=== PATIENT | female | born 1975 | race Caucasian/White ===

== ENCOUNTER 2016-07-19 15:46 | Emergency (ER) | payer BC, MEDICAID ==
[2016-07-19 18:07] LABS: Hematocrit 41 % (35-47); Hemoglobin 13.3 g/dl (12.0-16.0); Mean Corpuscular HGB Conc 33 g/dl (31-36); Mean Corpuscular Hemoglobin 31 pg (27-31); Mean Corpuscular Volume 95 fL (80-97); Mean Platelet Volume 9 um3 (7.4-10.4); Red Blood Count 4.26 10^6/ul (4.0-5.4); Red Cell Distribution Width 14 % (10.5-15); White Blood Count 5.6 10^3/ul (3.5-10.8)
[2016-07-19 18:23] LABS: ALT 12 U/L (7-52); AST 13 U/L (13-39); Albumin 3.5 g/dL (3.2-5.2); Alkaline Phosphatase 69 U/L (34-104); Anion Gap 4 mmol/L (2-11); BUN/Creatinine Ratio 12.7 (8-20); Blood Urea Nitrogen 10 mg/dL (6-24); C Reactive Protein 1.17 mg/L (< 5.00); CO2 Carbon Dioxide 26 mmol/L (22-32); Calcium 8.4 mg/dL (8.6-10.3); Chloride 109 mmol/L (101-111); EGFR African American 103.1 (>60); EGFR Non-African American 80.2 (>60); Globulin 2.7 g/dL (2-4); Glucose 110 mg/dL (70-100); Lipase 20 U/L (11.0-82.0); Sodium 139 mmol/L (133-145); Total Protein 6.2 g/dL (6.4-8.9)
[2016-07-19] MEDS ORDERED: Iohexol 300* (CONTRAST) 10 ML SDV IV ONE (20:56)
--- NOTE | 2016-07-19 21:21 | ED ---
Darell Lopez Billy, scribed for Yoni Mazariegos MD on 07/19/16 at 1837 . Abdominal Pain/Female - HPI Summary HPI Summary: Patient is a 41 year-old female coming to [facility] presenting with blood in the stool for the last 3 days; her last BM was yesterday, bloody. She also reports diffuse abdominal tenderness radiating to the back; when asked she has difficulty pinpointing location. She also reports fatigue, nausea, fever. She also reports a stiff neck that "feels like whiplash." PSHx of gastric bypass. She has had a recent course of antibiotics in the last 3 months. 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 - History of Current Complaint Chief Complaint: EDAbdPain Stated Complaint: ABD PAIN/FEVER/HEADACHE Time Seen by Provider: 07/19/16 17:32 Hx Obtained From: Patient Onset/Duration: Gradual Onset, Lasting Days, Still Present Timing: Constant Severity Initially: Moderate Severity Currently: Moderate Pain Intensity: 4 Pain Scale Used: 0-10 Numeric Location: Diffuse Radiates: Yes Radiates to: Back Aggravating Factor(s): Nothing Alleviating Factor(s): Nothing Associated Signs and Symptoms: Positive: Blood in Stool, Nausea, Other: - fatigue; neck stiffness Allergies/Adverse Reactions: Allergies Allergy/AdvReac Type Severity Reaction Status Date / Time Hydromorphone AdvReac Severe Headache Verified 07/19/16 15:55 [From Hydromorph Contin] PMH/Surg Hx/FS Hx/Imm Hx Endocrine/Hematology History: Denies: Hx Diabetes Cardiovascular History: Reports: Hx Hypercholesterolemia - Prior to gastric bypass, resolved, Hx Hypertension - No longer treated for, Other Cardiovascular Problems/Disorders - Prior to gastric bypass, resolved History: Denies: Hx Renal Disease - Surgical History Surgery Procedure, Year, and Place: Gastric bypass 2004, L knee [place] [facility] [place] [facility] [place] chole[place] [facility] [place] 2004 and 2008 laparoscopic surgeries for blockages, 2006 [facility] [place] tubal ligation. Infectious Disease History: Yes Infectious Disease History: Denies: Traveled Outside the [place] in Last 30 Days - Family History Known Family History: Positive: Unknown - Patient is adopted - Social History Alcohol Use: None Substance Use Type: Reports: None Smoking Status (MU): Former Smoker Review of Systems Positive: Fever, Fatigue Positive: Abdominal Pain, Nausea, Other - blood in stool Positive: Other - neck stiffness All Other Systems Reviewed And Are Negative: Yes Physical Exam Triage Information Reviewed: Yes Vital Signs On Initial Exam: Initial Vitals Temp Pulse Resp BP Pulse Ox 98.9 F 72 16 128/68 100 07/19/16 15:55 07/19/16 15:55 07/19/16 15:55 07/19/16 15:55 07/19/16 15:55 Vital Signs Reviewed: Yes Appearance: Positive: Well-Appearing, No Pain Distress Skin: Positive: Warm, Skin Color Reflects Adequate Perfusion, Dry Eyes: Positive: CHACHA ENT: Positive: Other - MMM Neck: Positive: Supple, Nontender Respiratory/Lung Sounds: Positive: Clear to Auscultation, Breath Sounds Present. Negative: Rales, Wheezes Cardiovascular: Positive: RRR, Other - No gallops., S1, S2. Negative: Rub, Tachycardia Abdomen Description: Positive: Soft, Other: - LUQ tenderness with grimacing without guarding or rebound.. Negative: CVA Tenderness (R), CVA Tenderness (L) , Distended Bowel Sounds: Positive: Present Musculoskeletal: Positive: Other - Calves are soft and nontender.. Negative: Edema Left, Edema Right Neurological: Positive: Alert, Oriented to Person Place, Time Psychiatric: Positive: Affect/Mood Appropriate AVPU Assessment: Alert Diagnostics - Vital Signs Vital Signs Temp Pulse Resp BP Pulse Ox 07/19/16 16:57 99.5 F 76 16 129/61 100 07/19/16 15:55 98.9 F 72 16 128/68 100 - Laboratory Lab Results: Lab Results 07/19/16 07/19/16 07/19/16 Range/Units 18:00 18:00 18:00 WBC 5.6 (3.5-10.8) 10^3/ul RBC 4.26 (4.0-5.4) 10^6/ul Hgb 13.3 (12.0-16.0) g/dl Hct 41 (35-47) % MCV 95 (80-97) fL MCH 31 (27-31) pg MCHC 33 (31-36) g/dl RDW 14 (10.5-15) % Plt Count 269 (150-450) 10^3/ul MPV 9 (7.4-10.4) um3 Neut % (Auto) 55.4 (38-83) % Lymph % (Auto) 35.4 (25-47) % [place] % (Auto) 6.4 (1-9) % Eos % (Auto) 2.1 (0-6) % Baso % (Auto) 0.7 (0-2) % Absolute Neuts (auto) 3.1 (1.5-7.7) 10^3/ul Absolute Lymphs (auto) 2.0 (1.0-4.8) 10^3/ul Absolute Monos (auto) 0.4 (0-0.8) 10^3/ul Absolute Eos (auto) 0.1 (0-0.6) 10^3/ul Absolute Basos (auto) 0 (0-0.2) 10^3/ul Absolute Nucleated RBC 0 10^3/ul Nucleated RBC % 0 Sodium 139 (133-145) mmol/L Potassium 4.0 (3.5-5.0) mmol/L Chloride 109 (101-111) mmol/L Carbon Dioxide 26 (22-32) mmol/L Anion Gap 4 (2-11) mmol/L BUN 10 (6-24) mg/dL Creatinine 0.79 (0.51-0.95) mg/dL Est GFR ( Amer) 103.1 (>60) Est GFR (Non-Af Amer) 80.2 (>60) BUN/Creatinine Ratio 12.7 (8-20) Glucose 110 H (70-100) mg/dL Lactic Acid 1.3 (0.5-2.0) mmol/L Calcium 8.4 L (8.6-10.3) mg/dL Total Bilirubin 0.20 (0.2-1.0) mg/dL AST 13 (13-39) U/L ALT 12 (7-52) U/L Alkaline Phosphatase 69 (34-104) U/L C-Reactive Protein 1.17 (< 5.00) mg/L Total Protein 6.2 L (6.4-8.9) g/dL Albumin 3.5 (3.2-5.2) g/dL Globulin 2.7 (2-4) g/dL Albumin/Globulin Ratio 1.3 (1-3) Lipase 20 (11.0-82.0) U/L Beta HCG, Quant < 0.60 mIU/mL Result Diagrams: 07/19/16 18:00 07/19/16 18:00 Lab Statement: Any lab studies that have been ordered have been reviewed, and results considered in the medical decision making process. Re-Evaluation - Re-Evaluation First Eval Re-Evaluation Time: 21:16 Comment: She is still non-tender, feeling quite well, and awaiting CT abd/pel. Abdominal Pain Fem Course/Dx - Course Course Of Treatment: Gastric bypass patient coming in with diarrhea, left-sided abdominal pain, and blood in the stool, as well as fever. CT abd/pel pending, signed out to Dr. Shaw. At this point, her abdomen is behind, non-surgical, but we will consult surgery based on CT results. Labwork WNL at this time. - Diagnoses Provider Diagnoses: Colitis Discharge - Discharge Plan Condition: Stable Disposition: OTHER Discharge Disposition Comment: Signed out to Dr. Shaw pending CT abd/pel. Referrals: Artem Davey MD [Primary Care Provider] - The documentation as recorded by the Darell parry Billy accurately reflects the service I personally performed and the decisions made by me, Yoni Mazariegos MD.
--- NOTE | 2016-07-19 22:28 | RAD ---
Indication: Left lower quadrant pain, diarrhea and bloody stools. CT of the abdomen and pelvis was performed after oral and IV contrast administration. Administered 115.0 ml of OMNIPAQUE 300 mgi/ml was given according to hospital protocol. Coronal and sagittal reconstructed images were obtained. The lung bases demonstrate no pleural fluid, nodules or masses. Heart is of normal size without evidence of pericardial effusion. Liver is normal in size. No focal lesions or intrahepatic ductal dilatation is noted. The gallbladder has been surgically resected. No adrenal lesions are noted. The right kidney is enlarged with no hydronephrosis. The left kidney is not present. There is suggestion of a small hypodensity in the left renal fossa which may represent a atrophic kidney. No retroperitoneal lymphadenopathy is noted. Patient status post gastric bypass surgery. No dilated loops of bowel are noted. There is some mucosal thickening of the sigmoid colon which is nonspecific. A small amount of free fluid is noted in the pelvis. The uterus demonstrates myomatous changes. No pelvic adenopathy is identified. The appendix is visualized and is normal. IMPRESSION: NONSPECIFIC MUCOSAL THICKENING OF THE RECTUM AND SIGMOID COLON WITH 30 FAT IN THE PELVIS. MYOMATOUS CHANGES ARE NOTED IN THE UTERUS. PATIENT STATUS POST CHOLECYSTECTOMY. PATIENT STATUS POST GASTRIC BYPASS SURGERY. 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 THERE MAY BE A REMNANT OF THE LEFT KIDNEY NOTED WHICH IS A HYPODENSITY.
[2016-07-20 01:24] VITALS: BP 110/66
--- NOTE | 2016-09-26 23:15 | ED ---
Tata Lopez Janilya, scribed for Marquis Shaw MD on 07/20/16 at 0040 . Re-Evaluation - Re-Evaluation First Eval Re-Evaluation Time: 21:16 Comment: She is still non-tender, feeling quite well, and awaiting CT abd/pel. Course/Dx - Diagnoses Provider Diagnoses: Abdominal pain Diagnostics - Vital Signs Vital Signs Temp Pulse Resp BP Pulse Ox 07/19/16 23:21 98.6 F 72 16 127/66 99 07/19/16 20:27 62 16 112/79 100 07/19/16 16:57 99.5 F 76 16 129/61 100 07/19/16 15:55 98.9 F 72 16 128/68 100 - Laboratory Lab Results: Lab Results 07/19/16 07/19/16 07/19/16 Range/Units 18:00 18:00 18:00 WBC 5.6 (3.5-10.8) 10^3/ul RBC 4.26 (4.0-5.4) 10^6/ul Hgb 13.3 (12.0-16.0) g/dl Hct 41 (35-47) % MCV 95 (80-97) fL MCH 31 (27-31) pg MCHC 33 (31-36) g/dl RDW 14 (10.5-15) % Plt Count 269 (150-450) 10^3/ul MPV 9 (7.4-10.4) um3 Neut % (Auto) 55.4 (38-83) % Lymph % (Auto) 35.4 (25-47) % [place] % (Auto) 6.4 (1-9) % Eos % (Auto) 2.1 (0-6) % Baso % (Auto) 0.7 (0-2) % Absolute Neuts (auto) 3.1 (1.5-7.7) 10^3/ul Absolute Lymphs (auto) 2.0 (1.0-4.8) 10^3/ul Absolute Monos (auto) 0.4 (0-0.8) 10^3/ul Absolute Eos (auto) 0.1 (0-0.6) 10^3/ul Absolute Basos (auto) 0 (0-0.2) 10^3/ul Absolute Nucleated RBC 0 10^3/ul Nucleated RBC % 0 Sodium 139 (133-145) mmol/L Potassium 4.0 (3.5-5.0) mmol/L Chloride 109 (101-111) mmol/L Carbon Dioxide 26 (22-32) mmol/L Anion Gap 4 (2-11) mmol/L BUN 10 (6-24) mg/dL Creatinine 0.79 (0.51-0.95) mg/dL Est GFR ( Amer) 103.1 (>60) Est GFR (Non-Af Amer) 80.2 (>60) BUN/Creatinine Ratio 12.7 (8-20) Glucose 110 H (70-100) mg/dL Lactic Acid 1.3 (0.5-2.0) mmol/L Calcium 8.4 L (8.6-10.3) mg/dL Total Bilirubin 0.20 (0.2-1.0) mg/dL AST 13 (13-39) U/L ALT 12 (7-52) U/L Alkaline Phosphatase 69 (34-104) U/L C-Reactive Protein 1.17 (< 5.00) mg/L Total Protein 6.2 L (6.4-8.9) g/dL Albumin 3.5 (3.2-5.2) g/dL Globulin 2.7 (2-4) g/dL Albumin/Globulin Ratio 1.3 (1-3) Lipase 20 (11.0-82.0) U/L Beta HCG, Quant < 0.60 mIU/mL Result Diagrams: 07/19/16 18:00 07/19/16 18:00 Lab Statement: Any lab studies that have been ordered have been reviewed, and results considered in the medical decision making process. - CT abd/pel CT Interpretation: Positive (See Comments) - IMPRESSION: NONSPECIFIC MUCOSAL THICKENING OF THE RECTUM AND SIGMOID COLON WITH 30 FAT IN THE PELVIS. MYOMATOUS CHANGES ARE NOTED IN THE UTERUS. PATIENT STATUS POST CHOLECYSTECTOMY. PATIENT STATUS POST GASTRIC BYPASS SURGERY. 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 THERE MAY BE A REMNANT OF THE LEFT KIDNEY NOTED WHICH IS A HYPODENSITY. CT Interpretation Completed By: Radiologist Discharge - Discharge Plan Condition: Stable Disposition: HOME Patient Education Materials: Abdominal Pain (ED) Referrals: Artem Davey MD [Primary Care Provider] - Additional Instructions: Follow up with your primary care provider. The documentation as recorded by the Tata parry Janilya accurately reflects the service I personally performed and the decisions made by me, Marquis Shaw MD.
== END 2016-07-20 01:25 | disposition home or self-care (01) ==
LOC: ED 15:46
DX: K52.9 Noninfective gastroenteritis and colitis, unspecified (principal); R10.9 Unspecified abdominal pain; R50.9 Fever, unspecified; R51 Headache; Z87.891 Personal history of nicotine dependence; R53.83 Other fatigue
CPT/HCPCS: 36415; 74177; 80053; 83605; 83690; 84702; 85025; 86140; 99283; Q9967

== ENCOUNTER 2017-12-23 08:40 | Emergency (ER) | payer BC ==
[2017-12-23 08:58] VITALS: BP 101/64
--- NOTE | 2017-12-23 09:51 | UC ---
Melita Lopez Julia, scribed for Joya Keene MD on 12/23/17 at 0942 . Skin Complaint HPI - HPI Summary HPI Summary: A 42 year old F presents to [facility] with a chief complaint of multiple red pruritic rashes to face thigh, and arms since last night after taking Diflucan yesterday. She states that she has had similar symptoms before after taking Diflucan. Took Benadryl last evening - helped itchng., Denies fever, difficulty breathing, and tongue or mouth swelling. Patient denies any other new exposures. Patient states the rash is [place] which she had last time she took Diflucan. Patient has been putting hydrocortisone cream on some of the lesions with improvement of itching. Medication and allergies reviewed. PMHx depression and migraines. Denies history of bipolar disorder and schizophrenia. - History of Current Complaint Chief Complaint: UCSkin Time Seen by Provider: 12/23/17 09:31 Stated Complaint: RASH Hx Obtained From: Patient Hx Last Menstrual Period: had uterine ablasion - doesn't get periods Onset/Duration: Lasting Hours Timing: Constant Pain Intensity: 0 Location: Diffuse Character: Pruritus, Redness Aggravating Factor(s): Other - diflucan Alleviating Factor(s): Nothing Associated Signs & Symptoms: Negative: Difficulty Breathing, Fever Related History: Recent change in medication - Allergy/Home Medications Allergies/Adverse Reactions: Allergies Allergy/AdvReac Type Severity Reaction Status Date / Time fluconazole [From Diflucan] Allergy Severe Rash Verified 12/23/17 09:48 hydromorphone AdvReac Headache Verified 12/23/17 08:58 Home Medications: Home Medications Butalbit/Acetamin/Caff/Codeine [Drgsin-Fbjp-Niiwgysavwa-Codein] 1 each PO DAILY PRN 12/23/17 [History Confirmed 12/23/17] Fluconazole 100 MG TAB* [Diflucan 100 MG TAB*] 100 mg PO ONCE PRN 12/23/17 [ History Confirmed 12/23/17] Folic Acid TAB* [Folvite TAB*] 1 mg PO DAILY 12/23/17 [History Confirmed ] Magnesium [Magnesium Elemental] 1 dose PO DAILY 12/23/17 [History Confirmed 10/07] Naproxen [Naproxen 500 mg tab] 500 mg PO DAILY PRN 12/23/17 [History Confirmed 12/23/17] Nitrofurantoin Macrocrystal [Nitrofurantoin] 100 mg PO 12/23/17 [History] Topiramate TAB(*) [Topamax 100 mg tab] 100 mg PO DAILY 12/23/17 [History Confirmed 12/23/17] Review of Systems Constitutional: Negative Skin: Rash ENT: Negative - mouth swelling Respiratory: Negative - difficulty breathing All Other Systems Reviewed And Are Negative: Yes PMH/Surg Hx/FS Hx/Imm Hx Previously Healthy: Yes Neurological History: Migraine Psychological History: Depression - Surgical History Surgical History: Yes Surgery Procedure, Year, and Place: Gastric bypass 2004, L knee surgery 1988 [facility] [place] , 1996 [facility] [place], cholecystectomy 1999 [facility] [place], 2004 and 2008 laparoscopic surgeries for blockages, 2006 [facility] [place] + tubal ligation. uterine ablasion - Family History Known Family History: Positive: Unknown - Patient is adopted - Social History Occupation: Employed Full-time Lives: - Patient is adopted Alcohol Use: Occasionally Substance Use Type: None Smoking Status (MU): Current Some Day Smoker Physical Exam - Summary Physical Exam Summary: Vital Signs Reviewed: Yes A+Ox3, no distress Eyes: Conjunctiva Clear ENT: Hearing grossly normal neck: supple Respiratory: Positive: No respiratory distress, No accessory muscle use Cardiovascular: skin color reflect adequate perfusion Musculoskeletal Exam: MAYS x 4 without difficulty Neurological: Positive: Alert, ambulatory without difficulty Psychological: Positive: Normal Response To Family Skin: Positive: no ecchymosis, patient with blotchy hive-like urticarial lesions to legs, arms, face and upper chest. Triage Information Reviewed: Yes Vital Signs: Initial Vital Signs Temp 98.6 F 12/23/17 08:52 Pulse 78 12/23/17 08:52 Resp 14 12/23/17 08:52 BP 101/64 12/23/17 08:52 Pulse Ox 99 12/23/17 08:52 Course/Dx - Course Course Of Treatment: Patient presents with hive-like lesions to arms legs chest. Patient states developed last night after taking Diflucan. Patient with similar reaction once previously. Patient denies any airway or mouth symptoms. Patient took Benadryl last night with improvement. Patient has not taken anything today. Patient has applied hydrocortisone cream with mild improvement. We'll start patient on a prednisone taper. Recommendations this Diflucan as an allergy. Patient agreement so Zkatter updated. Discussed with patient that avoiding heat, and using cool packs. Patient comfortable in agreement with plan. - Diagnoses Provider Diagnoses: urticaria Discharge - Sign-Out/Discharge Documenting (check all that apply): Discharge/Admit/Transfer - Discharge Plan Condition: Stable Disposition: HOME Prescriptions: predniSONE TAB* [Deltasone 20 MG TAB*] 20 mg PO DAILY #13 tab Patient Education Materials: Urticaria (ED), Adverse Drug Reaction (ED) Referrals: Artem Davey MD [Primary Care Provider] - Additional Instructions: - Take prednisone exactly as prescribed until gone - starting today - Okay to take Benadryl (1-2 tablets) every 6 hours as needed. This medication may cause drowsiness - do NOT drive, operate machinery or drink alcohol while taking Benadryl -Take pepcid as prescribed - 2 times daily for 7 days -Avoid getting over heated (hot showers, hot tubs, exercise) for at least 48 hours - Try to avoid aspirin, NSAIDs (Motrin, Aleve, Naprosyn) for 2-3 days - Okay to apply cool compresses to the area of injury -Contact your doctor or return here with questions or concerns - Billing Disposition and Condition Condition: STABLE Disposition: Home The documentation as recorded by the Melita parry Julia accurately reflects the service I personally performed and the decisions made by , Joya Keene MD.
== END 2017-12-23 09:56 | disposition home or self-care (01) ==
LOC: UCEAST 08:40
DX: L50.9 Urticaria, unspecified (principal); F32.9 Major depressive disorder, single episode, unspecified; G43.909 Migraine, unspecified, not intractable, without status migrainosus; F17.200 Nicotine dependence, unspecified, uncomplicated; Z88.5 Allergy status to narcotic agent; Z88.1 Allergy status to other antibiotic agents
CPT/HCPCS: 99212; G0463

== ENCOUNTER 2021-12-05 11:42 | Observation (INO) ==
[2021-12-05] MEDS ORDERED: Ondansetron 4 mg VIAL 2 MG/ML 2 ml VIAL IV ONE (13:16)
[2021-12-05] MEDS ORDERED: Morphine 4 MG/ML VIAL (1 ml) IV ONE (13:16)
[2021-12-05 13:51] LABS: ABS Eosinophils 0.1 10^3/ul (0-0.6); ABS Lymphocytes 1.4 10^3/ul (1.0-4.8); ABS Monocytes 0.3 10^3/ul (0-0.8); Eosinophil % 2.5 %; Hematocrit 45 % (35-47); Hemoglobin 14.6 g/dL (12.0-16.0); Lymphocyte % 29.7 %; Mean Corpuscular HGB Conc 33 g/dL (31-36); Mean Corpuscular Hemoglobin 31 pg (27-31); Mean Corpuscular Volume 94 fL (80-97); Mean Platelet Volume 8.3 fL (7.4-10.4); Nucleated Red Blood Cells % 0.1; Platelet Count 297 10^3/uL (150-450); Red Blood Count 4.73 10^6 /uL (3.70-4.87); Red Cell Distribution Width 15 % (10-15); White Blood Count 4.8 10^3/uL (3.5-10.8)
[2021-12-05 14:16] LABS: High Sens Troponin Baseline < 3 pg/mL (<15)
[2021-12-05 14:31] LABS: ALT 21 U/L (7-52); AST 26 U/L (13-39); Albumin 4.1 g/dL (3.2-5.2); Albumin/Globulin Ratio 1.6 (1-3); Alkaline Phosphatase 89 U/L (35-149); Anion Gap 8 mmol/L (2-11); Blood Urea Nitrogen 11 mg/dL (6-24); C Reactive Protein 2.07 mg/L (<8.01); CO2 Carbon Dioxide 26 mmol/L (22-32); Calcium 9.4 mg/dL (8.6-10.3); Chloride 106 mmol/L (101-111); Globulin 2.6 g/dL (2-4); Glucose 93 mg/dL (70-100); Lipase 28 U/L (11.0-82.0); Potassium 4.5 mmol/L (3.5-5.0); Sodium 140 mmol/L (135-145); Total Protein 6.7 g/dL (6.4-8.9); eGFR CKD-EPI 93.4 (>60)
[2021-12-05] MEDS ORDERED: Iohexol 300 (CONTRAST) 10 ML SDV IV ONE (14:34)
[2021-12-05] MEDS ORDERED: Thiamine 100 MG/ML 2 ml VIAL 100 MG, Folic Acid IV 1 MG, Multiple Vitamin IV ADULT 10 M... IV ONE (15:01)
[2021-12-05 15:51] LABS: High Sensitivity Troponin 1 Hr < 3 pg/mL (<15)
[2021-12-05] MEDS ORDERED: Ondansetron 4 mg VIAL 2 MG/ML 2 ml VIAL IV PRN (16:53)
[2021-12-05] MEDS ORDERED: Lactated Ringers 1000 ml BAG 1,000 ML IV SCH (17:00)
[2021-12-05] MEDS: Morphine 2 MG/ML SYRINGE IV PRN (20:18)
[2021-12-05] MEDS: Heparin 5000 UNITS/ML 1 mL VIAL SUBCUT SCH (21:28)
[2021-12-06] MEDS: Morphine 2 MG/ML SYRINGE IV PRN ×2 (02:50→06:25)
[2021-12-06 04:47] LABS: ABS Eosinophils 0.1 10^3/ul (0-0.6); ABS Lymphocytes 1.3 10^3/ul (1.0-4.8); ABS Monocytes 0.2 10^3/ul (0-0.8); ABS Neutrophils 1.6 10^3/ul (1.5-7.7); Eosinophil % 3.6 %; Hematocrit 43 % (35-47); Hemoglobin 13.8 g/dL (12.0-16.0); Lymphocyte % 39.4 %; Mean Corpuscular HGB Conc 32 g/dL (31-36); Mean Corpuscular Hemoglobin 31 pg (27-31); Mean Corpuscular Volume 94 fL (80-97); Mean Platelet Volume 8.1 fL (7.4-10.4); Nucleated Red Blood Cells % 0.2; Platelet Count 232 10^3/uL (150-450); Red Blood Count 4.52 10^6 /uL (3.70-4.87); Red Cell Distribution Width 15 % (10-15); White Blood Count 3.2 10^3/uL (3.5-10.8)
[2021-12-06 05:43] LABS: Albumin 3.5 g/dL (3.2-5.2); Albumin/Globulin Ratio 1.5 (1-3); Calcium 8.8 mg/dL (8.6-10.3); Globulin 2.3 g/dL (2-4); Potassium 4.1 mmol/L (3.5-5.0); Total Bilirubin 0.9 mg/dL (0.2-1.0); Total Protein 5.8 g/dL (6.4-8.9); eGFR CKD-EPI 104.4 (>60)
[2021-12-06] MEDS: Heparin 5000 UNITS/ML 1 mL VIAL SUBCUT SCH ×2 (06:17→12:44)
[2021-12-06] MEDS ORDERED: SUMAtriptan Subcut 6 MG/0.5 ML VIAL SUBCUT ONE (09:06)
[2021-12-06] MEDS ORDERED: Acetaminophen IV 1 GM/100ML 100 ML IV PRN (09:08)
[2021-12-06] MEDS ORDERED: Dexamethasone IV 4 MG/ML VIAL 1 ml VIAL ONE (13:15)
[2021-12-06] MEDS ORDERED: Ondansetron 4 mg VIAL 2 MG/ML 2 ml VIAL ONE (13:15)
[2021-12-06] MEDS ORDERED: Lidocaine 2% PF 5 ML VIAL ONE (13:15)
[2021-12-06] MEDS ORDERED: Propofol 10 MG/ML 20 ML BTL ONE (13:15)
[2021-12-06] MEDS ORDERED: fentaNYL 250 mcg/5 ml 50 MCG/ML 5 ml VIAL (250 MCG) ONE (13:16)
[2021-12-06] MEDS ORDERED: Rocuronium 50 mg VIAL 10 mg/ml 5 ml VIAL (50 mg) ONE (13:16)
[2021-12-06] MEDS ORDERED: Midazolam 2 mg/2 ml VIAL 1 mg/ml 2 ml VIAL (2 mg) ONE (13:16)
[2021-12-06] MEDS ORDERED: Bupivacaine 0.25% w/EPI 10 ML SDV ONE (13:23)
[2021-12-06] MEDS ORDERED: Naloxone 0.4 mg VIAL 0.4 mg/ml 1 ml VIAL IV PRN (14:22)
[2021-12-06] MEDS ORDERED: fentaNYL 100 mcg/2 ml 50 MCG/ML VIAL ONE (15:35)
[2021-12-06] MEDS: fentaNYL 100 mcg/2 ml 50 MCG/ML VIAL IV PRN ×2 (15:39→16:16)
[2021-12-06 17:48] VITALS: BP 119/69
== END 2021-12-06 18:35 | disposition short-term general hospital (02) ==
LOC: ED 11:42 → EDHOLD 11:42 → SSU 21:26
PROVIDERS: ADMIT Surgery; ATTEND Surgery